=== PATIENT | male | born 1955 | race Caucasian/White ===

== ENCOUNTER → 2017-02-23 | Outpatient (CLI) | payer OTHER ==
--- NOTE | 2017-02-23 14:13 | DIAGNOSTIC IMAGING REPORT ---
KUB CLINICAL HISTORY: Nephrolithiasis. FINDINGS: 2 AP supine abdominal radiographs are obtained. No prior studies are available for comparison at the time of dictation. There is a nonobstructed abdominal bowel gas pattern noting moderate colonic fecal retention. There is no clear radiographic evidence of nephrolithiasis. Numerous phleboliths are observed in the pelvis. The bony structures appear intact. IMPRESSION: There is no clear radiographic evidence of nephrolithiasis. Electronically signed by: Herman Meadows M.D. 02/23/2017 2:12 PM Dictated Date/Time: 02/23/2017 2:06 PM
== END | disposition home or self-care (01) ==
LOC: C.RAD 13:46
PROVIDERS: ATTEND Nurse Practitioner Family
DX: N20.0 Calculus of kidney (principal)